=== PATIENT | female | born 1955 | race Caucasian/White ===

== ENCOUNTER 2018-03-04 13:32 | Outpatient (RCR) | payer OTHER, SELFPAY | END 2018-03-05 23:59 | LOC: NS 13:32 | PROVIDERS: Family Provider Family Medicine; PCP Family Medicine; Visit Provider Family Medicine | DX: E66.01 Morbid (severe) obesity due to excess calories (principal); Z68.41 Body mass index [BMI] 40.0-44.9, adult; Z71.3 Dietary counseling and surveillance | CPT/HCPCS: 97802 ==

== ENCOUNTER 2018-03-25 09:32 | Outpatient (RCR) | payer OTHER, SELFPAY | END 2018-04-05 23:59 | LOC: NS 09:32 | PROVIDERS: Family Provider Family Medicine; PCP Family Medicine; Visit Provider Family Medicine | DX: E66.01 Morbid (severe) obesity due to excess calories (principal); Z68.41 Body mass index [BMI] 40.0-44.9, adult; I48.91 Unspecified atrial fibrillation; Z71.3 Dietary counseling and surveillance | CPT/HCPCS: 97803 ==

== ENCOUNTER 2018-04-30 11:30 | Outpatient (RCR) | payer OTHER, SELFPAY | END 2018-05-05 23:59 | LOC: NS 11:30 | PROVIDERS: Family Provider Family Medicine; PCP Family Medicine; Visit Provider Family Medicine | DX: I48.91 Unspecified atrial fibrillation (principal); E66.01 Morbid (severe) obesity due to excess calories; Z68.41 Body mass index [BMI] 40.0-44.9, adult; Z71.3 Dietary counseling and surveillance | CPT/HCPCS: 97803 ==

== ENCOUNTER → 2018-05-25 08:13 | Outpatient (CLI) | payer OTHER, SELFPAY ==
--- NOTE | 2018-05-25 08:59 | BI_ITS ---
MAMMOGRAPHY - BILATERAL SCREENING REASON FOR EXAM: Female, 63 years old. Routine annual screening examination. PERTINENT HISTORY: Aunt with breast cancer. TECHNIQUE: Digital bilateral breast hattie (3D mammographic acquisition) in the CC and MLO projections. 2-D mediolateral oblique (MLO) and craniocaudad (CC) views of both breasts were obtained. CAD: Full Field Digital Mammography with Computer Added Detection was performed. COMPARISON: Comparison is made with prior study dated April 23, 2017 and April 07, 2016. FINDINGS: Breast Composition: The breasts are almost entirely fatty. There are no dominant masses or suspicious calcifications. Stable 6 mm well-defined nodule in the upper midportion of the left breast with calcifications. This most likely represents a fibroadenoma. No other significant abnormalities are identified. There has been no significant change since the prior study. BI/SCREENING MAMM (CAD), BILAT IMPRESSION: Stable bilateral screening mammogram. Yearly follow-up mammogram recommended. (A) ASSESSMENT CATEGORY: BIRADS Category 2: Benign. A letter regarding these results will be sent to the patient by the facility within 30 days. Approximately 10% of breast cancers are not detected by mammography. A normal mammogram should not delay biopsy of a clinically suspicious abnormality. [id number] Electronically Signed: Charles Arce MD at 13:32 EDT Tel [phone], Service support ,
== END ==
PROVIDERS: Family Provider Family Medicine; PCP Family Medicine; Visit Provider Obstetrics & Gynecology
DX: Z12.31 Encounter for screening mammogram for malignant neoplasm of breast (principal)
CPT/HCPCS: 77063; 77067

== ENCOUNTER → 2018-05-28 21:21 | Outpatient (CLI) | payer OTHER, SELFPAY | PROVIDERS: Family Provider Family Medicine; PCP Family Medicine | DX: G47.33 Obstructive sleep apnea (adult) (pediatric) (principal); G47.10 Hypersomnia, unspecified; I48.91 Unspecified atrial fibrillation; I50.9 Heart failure, unspecified | CPT/HCPCS: 95810 ==

== ENCOUNTER 2018-06-03 09:00 | Outpatient (RCR) | payer OTHER, SELFPAY | END 2018-06-05 23:59 | LOC: NS 09:00 | PROVIDERS: Family Provider Family Medicine; PCP Family Medicine; Referring Provider Family Medicine; Visit Provider Family Medicine | DX: I48.91 Unspecified atrial fibrillation (principal); E66.01 Morbid (severe) obesity due to excess calories; Z68.41 Body mass index [BMI] 40.0-44.9, adult; Z71.3 Dietary counseling and surveillance | CPT/HCPCS: 97802; 97803 ==

== ENCOUNTER → 2018-06-20 13:29 | Outpatient (CLI) | payer OTHER, SELFPAY ==
[2018-06-20 13:31] LABS: Bacteria 0 SEEN /hpf (None Seen); Mucous, Urine 0 SEEN /hpf (<or=2+); Squamous Epithelial Cells - UA 0 SEEN /hpf (5-10); White Blood Cells 0 SEEN /hpf (0-5)
[2018-06-20 13:50] LABS: Color, Urine Yellow (Yellow); Glucose, Dipstick Normal (Normal); Ketone-Dipstick Negative (Negative); Leukocyte Esterase-Dipstick Negative /ul (Negative); Nitrite-Dipstick Negative (Negative); Occult Blood-Urine 25 /ul (Negative); Protein-Dipstick Negative (Negative); Specific Gravity, Urine 1.005 (1.002-1.030); Urine Bilirubin Dipstick Negative (Negative); Urine Clarity Clear (Clear); Urine Urobilinogen Normal (Normal)
[2018-06-20 14:24] LABS: Hyaline Cast 0-5 SEEN /lpf (0-5); Red Blood Cells-Urine 0-5 SEEN /hpf (0-5)
[2018-06-24 11:49] LABS: HPV Reflexed? NOT INDICATED
== END ==
PROVIDERS: Visit Provider Obstetrics & Gynecology
DX: Z12.4 Encounter for screening for malignant neoplasm of cervix (principal); N39.0 Urinary tract infection, site not specified
CPT/HCPCS: 81001; 87086; 87088; 87186; 88175; G0145

== ENCOUNTER 2018-07-01 17:00 | Outpatient (RCR) | payer OTHER, SELFPAY | END 2018-07-01 23:59 | LOC: NS 17:00 | PROVIDERS: Family Provider Family Medicine; PCP Family Medicine; Referring Provider Family Medicine; Visit Provider Family Medicine | DX: I48.91 Unspecified atrial fibrillation (principal); E66.01 Morbid (severe) obesity due to excess calories; Z68.37 Body mass index [BMI] 37.0-37.9, adult; Z71.3 Dietary counseling and surveillance | CPT/HCPCS: 97803 ==

== ENCOUNTER → 2019-03-22 10:07 | Outpatient (CLI) | payer OTHER, SELFPAY ==
[2018-08-01 16:34] VITALS: BMI 35.3
[2019-03-22 11:40] LABS: AST(SGOT) 22 U/L (15-37); Alanine Aminotransfer ALT/SGPT 29 U/L (13-56); Albumin, Serum 3.6 g/dL (3.2-5.0); Alkaline Phosphatase 68 U/L (45-117); Anion Gap 5 (5-15); BUN 16 mg/dL (7-18); BUN/Creat Ratio 17.4 RATIO (10-20); Calcium,Total 8.9 mg/dL (8.5-10.1); Chloride 107 mmol/L (98-107); Cholesterol 264 mg/dL (200); Creatinine, Serum 0.92 mg/dL (0.55-1.02); EST Glomerular Filtration Rate 65 mL/min (>60); Est Glom Filt Rate - Afr Amer 79 mL/min (>60); Globulin 3.6 g/dL (2.2-4.2); Glucose 98 mg/dL (74-106); High Density Lipoprotein 65 mg/dL; Potassium 4.2 mmol/L (3.5-5.1); Protein, Total 7.2 g/dL (6.4-8.2); Sodium Level 141 mmol/L (136-145); Triglycerides 102 mg/dL; Very Low Density Lipoprotein 20 mg/dL (5-40)
== END ==
PROVIDERS: Family Provider Family Medicine; PCP Family Medicine; Referring Provider Internal Medicine Endocrinology, Diabetes & Metabolism; Visit Provider Internal Medicine Endocrinology, Diabetes & Metabolism
DX: E89.0 Postprocedural hypothyroidism (principal); E78.00 Pure hypercholesterolemia, unspecified
CPT/HCPCS: 36415; 80053; 80061; 84443

== ENCOUNTER → 2019-06-17 16:56 | Outpatient (CLI) | payer OTHER, SELFPAY ==
[2019-03-24 12:45] VITALS: BMI 35.3
--- NOTE | 2019-06-17 16:57 | BI_ITS ---
MAMMOGRAPHY - BILATERAL SCREENING REASON FOR EXAM: Female, 64 years old. Routine annual screening examination. PERTINENT HISTORY: Aunts with breast cancer. TECHNIQUE: Digital bilateral breast eliza (3D mammographic acquisition) in the CC and MLO projections. 2-D mediolateral oblique (MLO) and craniocaudad (CC) views of both breasts were obtained. CAD: Full Field Digital Mammography with Computer Added Detection was performed. COMPARISON: Comparison is made with prior study dated May 25, 2018 and April 23, 2017. FINDINGS: Breast Composition: The breasts are almost entirely fatty. There are no dominant masses or suspicious calcifications. Stable small benign-appearing bilateral axillary lymph nodes. Stable 6 mm calcification suggestive of a calcified fibroadenoma in the upper slightly lateral portion of the left breast. No other significant abnormalities are identified. There has been no significant change since the prior study. BI/SCREEN MAMM (CAD) W/ELIZA BILAT IMPRESSION: Stable bilateral screening mammogram. Yearly follow-up mammogram recommended. (A) ASSESSMENT CATEGORY: BIRADS Category 2: Benign. A letter regarding these results will be sent to the patient by the facility within 30 days. Approximately 10% of breast cancers are not detected by mammography. A normal mammogram should not delay biopsy of a clinically suspicious abnormality. [id number] Electronically Signed: Charles Arce, at 8:53 EST , Service support ,
== END ==
PROVIDERS: Family Provider Family Medicine; PCP Family Medicine; Referring Provider Obstetrics & Gynecology; Visit Provider Obstetrics & Gynecology
DX: Z12.31 Encounter for screening mammogram for malignant neoplasm of breast (principal)
CPT/HCPCS: 77063; 77067

== ENCOUNTER → 2019-11-07 10:27 | Outpatient (CLI) | payer OTHER, SELFPAY ==
[2019-03-24 12:45] VITALS: BMI 35.3
[2019-11-07 11:42] LABS: ALB/GLOB Ratio 1.1 RATIO (0.9-2.4); AST(SGOT) 27 U/L (15-37); Alanine Aminotransfer ALT/SGPT 31 U/L (13-56); Albumin, Serum 3.7 g/dL (3.2-5.0); Alkaline Phosphatase 70 U/L (45-117); Anion Gap 8 (5-15); BUN 10 mg/dL (7-18); BUN/Creat Ratio 11.8 RATIO (10-20); Calcium,Total 8.5 mg/dL (8.5-10.1); Chloride 103 mmol/L (98-107); Cholesterol 187 mg/dL (200); Creatinine, Serum 0.85 mg/dL (0.55-1.02); EST Glomerular Filtration Rate 71 mL/min (>60); Est Glom Filt Rate - Afr Amer 86 mL/min (>60); Globulin 3.3 g/dL (2.2-4.2); Glucose 87 mg/dL (74-106); High Density Lipoprotein 66 mg/dL; Potassium 3.3 mmol/L (3.5-5.1); Sodium Level 139 mmol/L (136-145); Triglycerides 171 mg/dL; Very Low Density Lipoprotein 34 mg/dL (5-40)
== END ==
PROVIDERS: PCP Family Medicine; Referring Provider Internal Medicine Endocrinology, Diabetes & Metabolism; Visit Provider Internal Medicine Endocrinology, Diabetes & Metabolism
DX: E89.0 Postprocedural hypothyroidism (principal); E78.00 Pure hypercholesterolemia, unspecified
CPT/HCPCS: 36415; 80053; 80061; 84443

== ENCOUNTER → 2019-11-28 15:11 | Outpatient (CLI) | payer OTHER, SELFPAY ==
[2019-03-24 12:45] VITALS: BMI 35.3
[2019-11-28 18:53] LABS: Anion Gap 4 (5-15); BUN 21 mg/dL (7-18); BUN/Creat Ratio 21.7 RATIO (10-20); Calcium,Total 8.8 mg/dL (8.5-10.1); Chloride 103 mmol/L (98-107); Creatinine, Serum 0.97 mg/dL (0.55-1.02); EST Glomerular Filtration Rate 62 mL/min (>60); Est Glom Filt Rate - Afr Amer 74 mL/min (>60); Glucose 94 mg/dL (74-106); Sodium Level 137 mmol/L (136-145)
== END ==
PROVIDERS: PCP Family Medicine; Referring Provider Internal Medicine Endocrinology, Diabetes & Metabolism; Visit Provider Internal Medicine Endocrinology, Diabetes & Metabolism
DX: E89.0 Postprocedural hypothyroidism (principal)
CPT/HCPCS: 36415; 80048

== ENCOUNTER → 2020-01-09 12:55 | Outpatient (CLI) | payer OTHER, SELFPAY ==
[2019-03-24 12:45] VITALS: BMI 35.3
[2020-01-09 14:30] LABS: Anion Gap 5 (5-15); BUN 17 mg/dL (7-18); Calcium,Total 9.3 mg/dL (8.5-10.1); Chloride 105 mmol/L (98-107); Creatinine, Serum 0.94 mg/dL (0.55-1.02); EST Glomerular Filtration Rate 63 mL/min (>60); Est Glom Filt Rate - Afr Amer 76 mL/min (>60); Glucose 98 mg/dL (74-106); Potassium 3.8 mmol/L (3.5-5.1); Sodium Level 139 mmol/L (136-145); Thyroid Stim Hormone (TSH) 4.31 uIU/mL (0.358-3.74)
== END ==
PROVIDERS: PCP Family Medicine; Visit Provider Internal Medicine Endocrinology, Diabetes & Metabolism
DX: E89.0 Postprocedural hypothyroidism (principal)
CPT/HCPCS: 36415; 80048; 84443

== ENCOUNTER 2022-12-08 14:00 | Outpatient (RCR) | payer MEDICARE, BC, SELFPAY ==
--- NOTE | 2022-11-07 17:07 | HP.PTEVAL ---
Patient's Visit Information ARASH PHIPPS is a 67 year old F referred to Physical Therapy by Kelby Lovell PA-C with a diagnosis of L medial epicondaylitis. Date of Evaluation: 11/07/22 Physical Therapist: Eugene Bartlett, PT, ATC - Visit Plan Frequency: 1x/Week Duration: 4-6 Weeks - Subjective Pt reports she has had R lateral elbow pain for the past 2 mos. Pt notes she recently took a steroid for 8 days and the pain is mostly gone. Pt reports she still has some pain on the lateral aspect of her L elbow. Pt reports she has sleep difficulty at this time secondary to L elbow pain. Pt reports she is R hand dominant. Pt reports she tries not to use her L UE very often in order to avoid pain. Pt reports denies tingling or numbness at this time. Pt reports she has had x-rays which revealed no sig findings. Pt reports she is 100% limited from physical activity at this time until she goes through a cardio inversion. Pt reports she hopes to be able to get an US to aid with her pain. 0/10 pain at rest, 9/10 pain at worst - Pain L elbow Pain Intensity (Out of 10): 0 Pain Intensity Range: 9 - Objective Palpation: Pt is sore along the medial aspect of the L epicondyle. Neuro: B UE sensation is WNL to light touch. B bicipital reflex= 2/3. ROM: L elbow ext= 75, flex= 70 degrees; R elbow ext= 80, flex= 70 degrees. MMT: L elbow ext= 25, flex= 19 #F; R elbow ext= 30, flex= 30 #F - Balance/Special Test Scores Quick DASH Score: 18.1800 - Goals Goal 1:: I with HEP Goal Time Frame: 4-6 Weeks - Rehabilitation Potential Physical Therapy Diagnosis: Pt has L elbow pain secondary to L medial epicondylitis Rehabilitation Potential: Good - Anticipated Interventions Patient/Client Instruction: Educate patient on: Condition, Plan of Care For the Purpose of:: To improve self management Therapeutic Exercise to Include: Strength training, Flexibilty training For the Purpose of:: To decrease pain, To increase ROM Thank you for the opportunity to evaluate your patient. For Medicare and Medicare HMO plans, please review the plan of care and approve it. It will need to be FAXED BACK to us at [phone] for Medicare purposes. For Medicare only, by signing this I certify the plan of care. Please let me know if there are questions or concerns regarding this plan of care. Physician Signature: Date:
--- NOTE | 2022-12-08 14:36 | HP.PTREVAL ---
Kelby Lovell PA-C, It has been my pleasure to treat ARASH PHIPPS over the last 6 visits for L medial epicondaylitis. Please see the progress note below for an update on the physical therapy plan of care! Subjective: Pt reports she is getting better Objective/Function: L medial elbow pain ranges from 0-7/10. L wrist ext 70 degrees. Pt is I with HEP Plan Plan: Recheck or discharge in 1 month Balance/Gait/Functional tests - Balance/Special Test Scores Quick DASH Score: 9.0900 Goals Goal 1:: I with HEP Goal Time Frame: 4-6 Weeks Goal Progress: Goal Met Anticipated Interventions Patient/Client Instruction: Educate patient on: Condition, Plan of Care For the Purpose of:: To improve self management Therapeutic Exercise to Include: Strength training, Flexibilty training For the Purpose of:: To decrease pain, To increase ROM Please do not hesitate to contact me at [phone] by phone or if you have questions or concerns regarding this new plan of care! Sincerely, Eugene Bartlett, PT, ATC
--- NOTE | 2023-02-07 09:55 | HP.PT.NRP ---
Patient Information Patient Information: ARASH PHIPPS was seen in my office for initial evaluation on 11/07/22. The following Plan of Care was established for this patient: POC Established Initial Frequency: 1x/Week Initial Duration: 4-6 Weeks Anticipated Interventions Patient/Client Instruction: Educate patient on: Condition and Plan of Care For the Purpose of:: To improve self management Therapeutic Exercise to Include: Strength training and Flexibilty training For the Purpose of:: To decrease pain and To increase ROM Last Seen Last Seen: This patient was last seen in our office . Pertinent comments regarding their Physical therapy will appear below: Pt was treated for 6 PT visits for L elbow pain through the date of 12/21/22. Pt has not returned through todays date and is discontinued at this time. At this point I will be discontinuing this patient from physical therapy. I would be happy to see this patient again in the future if found appropriate by the physician. Thank you! Eugene Bartlett, PT, ATC Balance/Gait/Functional tests Balance/Special Test Scores Quick DASH Score: 9.0900
== END 2022-12-08 19:00 | disposition home or self-care (01) ==
LOC: PT 14:00
PROVIDERS: PCP Family Medicine; Visit Provider Physician Assistant
DX: M77.12 Lateral epicondylitis, left elbow (principal)
CPT/HCPCS: 97035; 97110; 97140; 97161; 97164

== ENCOUNTER 2024-11-27 10:30 | Outpatient (RCR) | payer MEDICARE, BC, SELFPAY ==
--- NOTE | 2024-10-21 09:10 | HP.PTEVAL ---
Patient's Visit Information Visit Information Visit Information: ARASH PHIPPS is a 69 year old F referred to Physical Therapy by LUTHER Olivera with a diagnosis of L Gluteus medius and minimus repair, greater trochanteric bursectomy and IT. Date of Evaluation: 10/15/24 Physical Therapist: Vicente Wren DPT Visit Plan Frequency: 2x /Week Duration: 8 weeks Plan: Manual to L glute, L TFL and iliopsoas. Progress with strengthening and ROM her protocol. Subjective Subjective: Pt. is here today for her initial evaluation with diagnosis of L Gluteus medius and minimus repair, greater trochanteric bursectomy and IT band resection, DOS: 08/25/34. Pt. arrives with quad cane and reports just starting to use it the past few days. Pt. reports doing home health with good tolerance. She reports no N/T in either LE. Pt. report sleeping well without issues. Pt. reports walking around her home without issues. She does have occasional increase in symptoms if I take a bad step. Pt. continues to do her exercises from PT. Pt. is hopeful to reduce symptoms in order to get back to all recreational activities without limitations or increase in L hip pain. Pt. would like to walk without pain and be able to get around her house and go to sporting events with better tolerance. Pain L gluteal region: Pain Intensity (Out of 10): 1 Pain Intensity Range: 0 and 4 Objective Objective: POSTURE: Pt. has slight wt. shift to R side in stance, slight fwrd flexed posture. Pt. is able to improve with VCing. PALPATION: Pt. has tenderness at IT band, throughout. Tenderness throughout gluteal region. NEURO: Normal throughout, normal DTR in BLEs. ROM: L hip: flexion 90deg mild increase NW, ER 30deg, IR not tested, abd 35deg. ext 5deg. MMT: 5/5 knee and ankle musculature bilaterally. 4-/5 throughout L hip musculature. I did not test hip abduction. Balance/Special Test Scores Lower Extremity Functional Score: 40 Goals Goal 1:: LTG: Pt. to be I with HEP. Goal Time Frame: 4-6 Weeks Goal 2:: LTG: Pt. to have full L hip ROM without increase in symptoms. Goal Time Frame: 4-6 Weeks Goal 3:: LTG: pt. to have symmetrical strength between BLEs. Goal Time Frame: 6-8 Weeks Goal 4:: LTG: Pt. to complete 30sec sit to stand rep test with at least 10 reps. Goal Time Frame: 6-8 Weeks Goal 5:: LTG: Pt. to have normal gait pattern without AD without increase in L hip pain. Goal Time Frame: 6-8 Weeks Goal 6:: LTG: Pt. to resume all recreational activities without increase in L gluteal pain. Goal Time Frame: 6-8 Weeks Rehabilitation Potential Physical Therapy Diagnosis: Pt. has signs and symptoms consistent with L Gluteus medius and minimus repair, greater trochanteric bursectomy and IT band resection, DOS: 08/25/34. Pt. has marked hypomobility, weakness, difficulty with walking. Pt. would benefit from PT to address the above limitations progressing back to all recreational activities as previously. Rehabilitation Potential: Excellent Anticipated Interventions Patient/Client Instruction: Educate patient on: Condition, Plan of Care, Risk Factors and Benefits of Fitness Program For the Purpose of:: To improve decision making, To facilitate caregiver knowledge, To improve self management, To prevent re-injury and To improve ability to perform tasks related to life management Therapeutic Exercise to Include: Strength training, Power training, Postural training, Flexibilty training, Gait and locomotor training, Passive ROM, Active ROM and Dynamic Lumbar Stabilization For the Purpose of:: To decrease pain, To decrease swelling/inflammation, To increase ROM, To improve nutrient delivery to tissue, To increase oxygenation perfusion, To improve muscle performance and motor function, To improve ability to perform ADL's, To improve gait and locomotor functions, To improve health of tissue, To decrease soft tissue restriction and To increase flexibility/ROM Manual Therapy Techniques to Include: Soft tissue mobilization For the Purpose of:: To decrease pain, To decrease swelling/inflammation, To increase ROM, To improve nutrient delivery to tissue, To increase oxygenation perfusion and To improve muscle performance and motor function Cryotherapy (ice pack, ice massage): Yes Thermo therapy (hot pack): Yes For the Purpose of:: To decrease pain, To decrease swelling/inflammation, To increase ROM, To improve nutrient delivery to tissue and To increase oxygenation perfusion Text: Thank you for the opportunity to evaluate your patient. For Medicare and Medicare HMO plans, please review the plan of care and approve it. It will need to be FAXED BACK to us at [phone] for Medicare purposes. For Medicare only, by signing this I certify the plan of care. Please let me know if there are questions or concerns regarding this plan of care. Physician Signature: Date:
--- NOTE | 2024-11-27 12:58 | HP.PTREVAL ---
Re-Evaluation Intro: LUTHER Olivera, It has been my pleasure to treat ARASH PHIPPS over the last 12 visits for L Gluteus medius and minimus repair, greater trochanteric bursectomy and IT. Please see the progress note below for an update on the physical therapy plan of care! Subjective Subjective: Pt. reports having increased pain with driving and with stairs. Pt. does not having much issues with driving in town, but more so with longer distances. She still has issues with stair negotiation. Pt. reports having some intermittent issues with her L hip, but her R knee is bothering her more. Pt. is going to follow up with ortho about her R knee. She reports that she has been told it needs to be replaced previously. Objective Objective/Function: ROM: L hip: flexion 120deg NE, abd 45deg NE, ER 75deg NE, ext 10deg NE. Normal HS length noted. MMT: L hip: flexion 4+/5, abd 4+/5, ext 4+/5. ER 4/5, IR 5/5. RLE: hip: 5/5 throughout. GAIT: Pt. ambulates without AD, but does have some increased lateral sway. No true [place] noted. Pt. reports no increase in L hip pain with gait pattern. STAIRS: pt. is able to complete with light HR on 1 side. Reciprocal pattern noted. Plan Plan Plan: Pt. is going to complete her exercises at home and in pool for the next month. She is doing well. She is to come back if not progressing like she would like to. Balance/Gait/Functional tests Balance/Special Test Scores Lower Extremity Functional Score: 65 TUG Test Time Seconds: 9.1 Tug Test: <10 sec.=free mobile 30 Second Chair Rise Test Seconds: 14 Goals Goals Goal 1:: LTG: Pt. to be I with HEP. Goal Time Frame: 4-6 Weeks Goal Progress: Goal Met Goal 2:: LTG: Pt. to have full L hip ROM without increase in symptoms. Goal Time Frame: 4-6 Weeks Goal Progress: Goal Met Goal 3:: LTG: pt. to have symmetrical strength between BLEs. Goal Time Frame: 6-8 Weeks Goal Progress: Progressing Goal 4:: LTG: Pt. to complete 30sec sit to stand rep test with at least 10 reps. Goal Time Frame: 6-8 Weeks Goal Progress: Goal Met Goal 5:: LTG: Pt. to have normal gait pattern without AD without increase in L hip pain. Goal Time Frame: 6-8 Weeks Goal Progress: Progressing Goal 6:: LTG: Pt. to resume all recreational activities without increase in L gluteal pain. Goal Time Frame: 6-8 Weeks Goal Progress: Goal Met Anticipated Interventions Anticipated Interventions Patient/Client Instruction: Educate patient on: Condition, Plan of Care, Risk Factors and Benefits of Fitness Program For the Purpose of:: To improve decision making, To facilitate caregiver knowledge, To improve self management, To prevent re-injury and To improve ability to perform tasks related to life management Therapeutic Exercise to Include: Strength training, Power training, Postural training, Flexibilty training, Gait and locomotor training, Passive ROM, Active ROM and Dynamic Lumbar Stabilization For the Purpose of:: To decrease pain, To decrease swelling/inflammation, To increase ROM, To improve nutrient delivery to tissue, To increase oxygenation perfusion, To improve muscle performance and motor function, To improve ability to perform ADL's, To improve gait and locomotor functions, To improve health of tissue, To decrease soft tissue restriction and To increase flexibility/ROM Manual Therapy Techniques to Include: Soft tissue mobilization For the Purpose of:: To decrease pain, To decrease swelling/inflammation, To increase ROM, To improve nutrient delivery to tissue, To increase oxygenation perfusion and To improve muscle performance and motor function Cryotherapy (ice pack, ice massage): Yes Thermo therapy (hot pack): Yes For the Purpose of:: To decrease pain, To decrease swelling/inflammation, To increase ROM, To improve nutrient delivery to tissue and To increase oxygenation perfusion Re-Evaluation Ending Re-evaluation ending: Please do not hesitate to contact me at [phone] by phone or if you have questions or concerns regarding this new plan of care! Sincerely, Vicente Wren DPT
== END 2024-11-27 19:00 | disposition home or self-care (01) ==
LOC: PT 10:30
PROVIDERS: PCP Family Medicine; Referring Provider Physician Assistant; Visit Provider Physician Assistant
DX: S76.012D Strain of muscle, fascia and tendon of left hip, subsequent encounter (principal); M70.62 Trochanteric bursitis, left hip
CPT/HCPCS: 97110; 97161; 97530

== ENCOUNTER → 2025-06-09 | Outpatient (CLI) | payer MEDICARE, BC, SELFPAY ==
--- NOTE | 2025-06-09 12:59 | CT_ITS ---
PROCEDURE: CT/Extremity Lower without Contra
== END | disposition home or self-care (01) ==
LOC: CT 12:56
PROVIDERS: PCP Family Medicine; Referring Provider Specialist; Visit Provider Specialist
DX: M17.11 Unilateral primary osteoarthritis, right knee (principal)
CPT/HCPCS: 73700

== ENCOUNTER 2025-06-29 07:17 | Observation (INO) | payer MEDICARE, BC, SELFPAY ==
--- NOTE | 2025-06-04 10:26 | EKG12_ITS ---
Test Reason : PREOP Blood Pressure : */* mmHG Vent. Rate : 77 BPM Atrial Rate : 77 BPM P-R Int : 146 ms QRS Dur : 78 ms QT Int : 398 ms P-R-T Axes : 66 24 77 degrees QTcB Int : 450 ms Normal sinus rhythm Nonspecific ST and T wave abnormality Abnormal ECG Confirmed by NILDA FRIAS, CITLALLI ([id number]), index editor KATRINA RUIZ ([id number]) on 06/05/2025 9:58:54 AM Referred By: Herbert Tee Confirmed By: CITLALLI MUNGUIA MD
[2025-06-04 11:33] LABS: Hematocrit 39.6 % (37-47); Hemoglobin 13.7 g/dL (12.0-15.0); Immature Granulocytes Count 0.010 X10^3/uL (0.0-0.0); Mean Corp Hgb Conc 34.6 g/dL (32-36); Mean Corpuscular Volume 92.5 fL (81-99); Mean Platelet Vol. 9.8 fl (6.2-12.0); NRBC Flagged by Analyzer 0 % (0-5); Platelet Count 247 K/mm3 (150-450); RBC Distribution Width CV 12.7 % (11.6-14.6); RBC Distribution Width SD 43.3 fl (35.1-43.9); Red Blood Count 4.28 M/mm3 (4.2-5.4); White Blood Count 6.2 K/mm3 (4.4-11.0)
[2025-06-04 12:35] LABS: Albumin, Serum 4.1 g/dL (3.4-4.8); Anion Gap 10 (5-15); BUN 18 mg/dL (4-19); BUN/Creat Ratio 20.8 RATIO (10-20); Calcium,Total 9.8 mg/dL (7.6-11.0); Carbon Dioxide 24.3 mmol/L (21.0-32.0); Chloride 104 mmol/L (98-108); Glucose 104 mg/dL (70-99); Magnesium 2.2 mg/dL (1.5-2.2); Potassium 4.2 mmol/L (3.3-5.1)
--- NOTE | 2025-06-04 19:11 | PAT.ANESEVAL ---
Pre-Assessment Diagnosis/Proposed Procedure Planned Operative Procedure(s): (R) Total Knee Replacement Robotic Arm Stefano Anesthesia History Anesthesia History - ruffler: Anesthesia History - ruffler Hx Hospitalization No 06/03/25 10:01 Any Problems With Anesthesia No 06/03/25 10:01 Cholinesterase deficiency No 06/03/25 10:01 You/Your Family Experience No 06/03/25 10:01 fever (hyperthermia) with Relationship Recent Exposure to Contagious Disease Does patient have nerve No 06/03/25 10:01 stimulator Patient instructed to have device shut off --Does patient have Pacemaker or ICD? When Was Last Pacemaker Check QUESTION #4 FULL TEXT: You/Your Family Experience fever (hyperthermia) with Anesthesia Last Oral Intake Last Oral intake: Last Oral Intake NPO since Meds taken in AM with sips of water? Meds patient instructed to take am of surgery PONV PONV - ruffler: PONV - ruffler Female Yes 06/03/25 10:01 HX of Motion Sickness Yes 06/03/25 10:01 HX of N/V After Surgery No 06/03/25 10:01 Non-Smoker Yes 06/03/25 10:01 Duration of Surgery greater Yes 06/03/25 10:01 than 60 minutes Number of Risk Factors 4 06/03/25 10:01 PONV Score Severe Risk 06/03/25 10:01 Respiratory Assessment Respiratory Assessment - ruffler: Respiratory Tract Infection Hx - ruffler Hx Respiratory Tract Infection No 06/03/25 10:01 STOP Sleep Apnea STOP Sleep Apnea - ruffler: STOP Sleep Apnea - ruffler Hx Hypertension Yes: CONTROLLED WITH MED 06/03/25 10:01 Hx Sleep Apnea Yes 06/03/25 10:01 CPAP No 06/03/25 10:01 BIPAP No 06/03/25 10:01 Do you snore loudly (louder than talking or can be heard Do you often feel tired/ fatigued/ sleepy during daytime? Has anyone observed you stop breathing during sleep? STOP Results Positive 06/03/25 10:01 QUESTION #5 FULL TEXT : Do you snore loudly (louder than talking or can be heard through closed doors)? 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 Specify any problems Hx of Preganancy in last 3 N/A 06/03/25 10:01 Months Nurse Filling Out Transfusion NBUCHER 06/03/25 10:01 & Questions: Date: 06/03/25 06/03/25 10:01 Time: 10:08 06/03/25 10:01 Patient unable to answer at this time (ie. confused, unrespo /Reproduction History /Reproductive History - ruffler: /Reproductive Hx- ruffler Hx Now No 06/03/25 10:01 Gestational Age (in weeks): EDC: Hx Hx Para Hx Section SAB No 06/03/25 10:01 [facility] Medical History (Updated 06/03/25 @ 10:13 by Bailee Arias) Wears contact lenses Cancer Depression Horners syndrome Graves disease Thyroid disease Arthritis High cholesterol Stroke/cerebrovascular accident Non-smoker CPAP (continuous positive airway pressure) dependence Sleep apnea History of stress test History of echocardiogram Cardiology follow-up encounter History of atrial fibrillation TMJ (sprain of temporomandibular joint) Hypothyroid CAD (coronary artery disease) HTN (hypertension) A-fib Home Medications ?Medication ?Instructions ?Recorded ?Last Taken ?Type losartan 100 mg tablet 100 mg PO DAILY 04/17/16 Unknown History rivaroxaban 20 mg tablet 20 mg PO DAILY 04/17/16 Unknown History atorvastatin 10 mg tablet 20 mg PO QHS 06/24/18 Unknown History cholecalciferol (vitamin D3) 50 2,000 unit PO DAILY 06/24/18 Unknown History mcg (2,000 unit) capsule potassium chloride 20 mEq 20 meq PO DAILY 06/24/18 Unknown History tablet,extended release hydrochlorothiazide 25 mg tablet 25 mg PO DAILY 06/03/25 Unknown History levothyroxine 137 mcg tablet 137 mcg PO DAILY 06/03/25 Unknown History (Synthroid) sertraline 50 mg tablet 50 mg PO DAILY 06/03/25 Unknown History Allergy/AdvReac Type Severity Reaction Status Date / Time Sulfa (Sulfonamide Allergy Itching Verified 06/03/25 09:56 Antibiotics) Family History (Updated 06/24/18 @ 09:13 by Aye Sellers) Mother CVA (cerebral vascular accident) Aunt Breast cancer Surgical History (Updated 06/03/25 @ 10:13 by Bailee Arias) History of cardiac catheterization S/P D&C (status post dilation and curettage) H/O cardiac radiofrequency ablation S/P tubal ligation S/P appendectomy S/P tonsillectomy Social History (Updated 03/24/19 @ 13:55 by Alan SLOAN, PA) Smoking Status: Never smoker alcohol intake: current alcohol intake frequency: a few times a month Audit: Pertinent Findings Pertinent Findings EKG Perinent findings: June 04, 2025. Normal sinus rhythm. Nonspecific ST and T wave abnormalities. Compared to EKG of August 17, 2009 there is no significant change. Echo (EF%) pertinent findings: October 16, 2024. EF of 55%. RVSP is 17 mmHg. No aortic stenosis noted. Heart catheterization pertinent findings: January 09, 2022. Normal coronary angiogram. There is a AV fistula connecting from the SA petty branch of the left circumflex to a venous structure. Continue med therapy. Start diuretic. CT angiogram to delineate anatomy of fistula. Consult pertinent findings: 11/10/2024. Dr. Sykes. 1. Coronary arterial cameral fistula 2. Paroxysmal atrial fibrillation-scheduled for cardioversion next week. Follow-up with electrophysiology for further medication adjustment. Continue Xarelto for stroke risk reduction. 3. Nonrheumatic mitral valve regurgitation?unchanged on most recent echo of October 2024. 4. Hypertension?well-controlled. Continue losartan and hydrochlorothiazide. Recommendation Anesthesia Recommendation Anesthesia recommendation: OPTIMIZED for anesthesia
--- NOTE | 2025-06-28 21:16 | HP.PCM_ITS ---
History and Physical History and Physical Patient Name: Lary Hernández LanceDOB: 1955 From: DATE OF PRE-OPERATIVE EXAM: 06/22/2025 DATE OF SURGERY: 06/29/2025 SCHEDULED PROCEDURE: Robotic assisted right total knee arthroplasty HISTORY OF PRESENT ILLNESS: Patient is a 70-year-old female presenting preoperatively to right total knee arthroplasty. Patient states she has had right knee pain since 2020. Patient states that her pain is sharp. Patient states that doing stairs or sitting for extended periods of time can make her pain worse. Patient states that sitting, resting, elevating the leg helps to alleviate her pain. Patient states that she has tried cortisone injection with no help. Patient states she has tried rest, elevation, oral medications with help. Patient states that she has not tried ice, heat, weight loss, compression, physical therapy, home exercises, chiropractor, gel injections. Patient states for oral medications she has tried Advil. Patient has had 1 cortisone injection. Patient denies any surgeries on the affected joint. REVIEW OF SYSTEMS: Review Of Systems: Constitutional: Denies change in appetite, fever and weight change. Cardiovasular: Reports irregular heartbeat, but denies chest pain and heart murmur. Respiratory: Denies cough, pneumonia, shortness of breath, tuberculosis and wheezing. Gastrointestinal: Denies constipation, diarrhea, heartburn, nausea, rectal itching, bloody stools and vomiting. Genitourinary: . (F Genital Sx) . (Urinary Sx) Musculoskeletal: Reports pain, but denies leg swelling, trouble walking and weakness. Skin: Denies Raynaud's, history of shingles and tattoo. Neurological: Denies ambulatory dysfunction, dizziness, numbness/tingling and tremor. Psychiatric: Denies anxiety, insomnia and stress. Hematologic/Lymphatic: Denies anemia, bleeding/bruising tendency and past transfusion. Reviewed, no changes. PAST MEDICAL HISTORY: Advance Care Plan: No Advance Directives Effective Date: 02/27/2022 Past Medical History: Medical Problems: High Blood Pressure, Hypercholesterolemia History Of Blood Clots/ DVT - (2009) left arm and left fingers - traveled to brain - happened after heart conversion Sleep Apnea - does not use Cpap Stroke, Thyroid Disease Covid- 19 - (07/2021) macular degeneration - BILAT EYES heart ablation - (2022) Afib, Av fistula, atrial flutter Accidents: L4 FX - (2020) Surgical Hx: Appendectomy - (1969) Tonsillectomy - (1960) Tubal Ligation - (1979) Cardiac Ablation Cardioversion - (11/2022) [facility] Electrical Cardioversion - (03/07/2023) [facility] Left Hip reconstruction - 08/2024 Anesthesia Complications: None Assistive Devices: Glasses, Walker Reviewed and updated. SOCIAL HISTORY: Social History: Marital: .Occupation: Retired.Work Status: Retired.Hand Dominance: Right- handed. Personal Habits: Cigarette Use: Never Smoked Cigarettes.Smokeless Tobacco: Never Used Smokeless Tobacco.E-Cigarette Use: Never used.Alcohol: Occasionally.Drug Use: Denies Use.Enjoy Exercising: Exercises 1-3 X/Week. Reviewed, no changes. VITALS: Ht: 71 Wt: 270lb Wt k.472 BMI: 37.7 BP: 128/72 Pulse: 66 Resp: 18 T: 96.9 T: 36.1C Pain Level: 10/10 O2SatR: 98 ALLERGIES: Sulfa MEDICATIONS: Mupirocin 2 % use qtip and apply inside each nostril twice a day until the day of surgery, Levothyroxine Sodium 150 mcg 1 by mouth every day, Xarelto 20 mg 1 by mouth every day, Atorvastatin Calcium 20 mg 1 by mouth every day, Losartan Potassium 50 mg 1 by mouth every day, Zoloft 50 mg 1po qday, Hydrochlorothiazide 12.5 mg 1 by mouth every day, Vitamin D (Cholecalciferol) 50 mcg (1999 Ut) 1 tab, 1x/day, Multi Vitamin take 1 tablet by mouth once daily., Fish Oil 1200 mg 1 by mouth every day, Potassium Chloride ER 10 Meq daily PRE-OP EXAM: General appearance:NORMAL Other: Eyes: Conjunctivae and lids: NORMAL Pupils: ERR Ears, Nose, Mouth, and Throat: NORMAL Other: Inspection of lips, teeth and gums: NORMAL Other: Neck: Examination of neck: no masses noted. Respiratory: Assessment of respiratory effort: NORMAL Other: Auscultation of lungs: clear to auscultation no wheezes, rhonchi or rales. Cardiovascular: Auscultation of heart: regular rate and rhythm, no murmurs, gallops or rubs. Exam of carotid arteries: NORMAL Other: Gastrointestinal: Exam of abdomen: soft, nontender, nondistended bowel sounds present. Lymphatic: Palpation of nodes in neck: NORMAL Other: Palpation of nodes in Axillae: NORMAL Other: Neurological: see below Psychiatric: Orientation to time, place and person: NORMAL Other: Mood and affect: NORMAL Other: PHYSICAL EXAMINATION: - Physical Examination right knee: - Moderate to large effusion - Tenderness over the medial joint line - Large bone spurs palpable IMAGING STUDIES: - X-ray (07/2024): Shows [id number] arthritis in the right knee. There is associated subchondral sclerosis marginal osteophyte formation and varus alignment. IMPRESSION: Hypertension Hypercholesterolemia History of blood clots Sleep apnea History of stroke Thyroid disease Macular degeneration History of heart ablation Atrial fibrillation Anxiety AV fistula Depression Atrial flutter Primary osteoarthritis right knee Varus deformity right knee Obesity PLAN: The surgeon did discuss and review all treatment options with the patient including surgical versus nonsurgical. At this time the patient does wish to proceed with the above-stated procedure. Potential risks benefits and complications of the procedure were discussed and reviewed with the patient including but not limited to , infection, nerve and blood vessel damage, persistent pain, numbness, tingling, paresthesias, blood clot, pulmonary embolism, in the requirement for possible further surgery. Patient expressed full understanding. Has no further questions for the doctor. Does agree to proceed with the above-stated procedure, and has signed the appropriate surgery consent form. DVT prophylaxis: Patient will resume regular dose of Xarelto postoperatively. Patient will be wearing MORENO hose for 2 weeks postoperatively. Pain medications: Patient will be taking Tylenol 1000 mg every 8 hours, oxycodone as needed for postoperative pain control. Patient was educated in the use of Zofran for nausea and vomiting. Patient was educated in the use of famotidine postoperatively. Patient was educated in the use of postoperative senna to avoid constipation. ___ I have re-examined the patient. There are no clinical changes since date of exam. ___ See progress notes for changes. ___ Dictated on admission Date: Time: Signature:
[2025-06-29] VITALS (13 sets, daily range): BP systolic 107–150; BP diastolic 45–89; PULSE 53–71; RESP 12–20; TEMP 36.4–37.1; O2SAT 96–100; BMI 37.7
[2025-06-29] MEDS: Magnesium 1 GM over 15 mins IV (11:17)
[2025-06-29] MEDS: LR 1,000 ML - BOLUS PREOP 999 ML IV (11:18)
--- NOTE | 2025-06-29 12:24 | PCM.PRE.AN2 ---
ASA Classification* ASA Classification ASA Classification: 3 (Afib, HTN, ERUM, hx CVA) Assessment & Plan Anesthesia* Anesthesia Assessment Anesthesia Assessment: Discussed sedation and/or anesthesia options, risks, benefits, and alternatives with patient/parents/legal guardian/POA. Questions invited. The patient/parents/legal guardian/POA seems to understand and agrees to proceed with anesthesia plan. Reviewed the physical assessment, medical history, allergy history and patient home medications list prior to surgery/procedure/anesthetic and documented any changes. Performed airway and anesthesia risk assessments. Anesthesia Type Anesthesia Type: Spinal (Patient last took xarelto on 06/26/2025, and has been off xarelto for >48 hours, with CrCl > 50. ) and Block ((R) ACB. Benefits/risks/alternatives explained. Opportunity for questions elicited. ) History Source History Obtained from:: Patient and Chart Anesthesia Focused Assessment* Temperature: 98.7 F Pulse Rate: 53 Blood Pressure: 122/61 Respiratory Rate: 16 Pulse Ox: 100 Oxygen Delivery Method: Room Air Airway Assessment Mouth opens: >3 cm Mallampati Score: III Neck Range of motion (ROM): Full ROM Labs Anesthesia Preop lab: CBC WBC, (4.4-11.0) 6.2 K/mm3 06/04/25, 10:36 RBC, (4.2-5.4) 4.28 M/mm3 06/04/25, 10:36 Hgb, (12.0-15.0) 13.7 g/dL 06/04/25, 10:36 Hct, (37-47) 39.6 % 06/04/25, 10:36 Plt Count, (150-450) 247 K/mm3 06/04/25, 10:36 CHEMISTRY Potassium, (3.3-5.1) 4.2 mmol/L 06/04/25, 10:36 Sodium, (133-145) 139 mmol/L 06/04/25, 10:36 Magnesium, (1.5-2.2) 2.2 mg/dL 06/04/25, 10:36 BUN, (4-19) 18 mg/dL 06/04/25, 10:36 Creatinine, (0.70-1.20) 0.86 mg/dL 06/04/25, 10:36 Glucose, (70-99) 104 mg/dL H 06/04/25, 10:36 TSH, (0.300-4.200) 0.299 uIU/mL L 06/04/25, 10:36 COAG Pre-Assessment Diagnosis/Proposed Procedure Planned Operative Procedure(s): (R) Total Knee Replacement Robotic Arm Stefano Anesthesia History Anesthesia History - housing assistant: Anesthesia History - housing assistant Hx Hospitalization No 06/03/25 10:01 Any Problems With Anesthesia No 06/03/25 10:01 Cholinesterase deficiency No 06/03/25 10:01 You/Your Family Experience No 06/03/25 10:01 fever (hyperthermia) with Relationship Recent Exposure to Contagious No 06/29/25 11:05 Disease Does patient have nerve No 06/03/25 10:01 stimulator Patient instructed to have device shut off --Does patient have Pacemaker No 06/29/25 11:05 or ICD? When Was Last Pacemaker Check QUESTION #4 FULL TEXT: You/Your Family Experience fever (hyperthermia) with Anesthesia Last Oral Intake Last Oral intake: Last Oral Intake NPO since 20:30 06/29/25 11:05 Meds taken in AM with sips of Yes 06/29/25 11:05 water? Meds patient instructed to 0730 06/29/25 11:05 take am of surgery PONV PONV - housing assistant: PONV - housing assistant Female Yes 06/03/25 10:01 HX of Motion Sickness Yes 06/03/25 10:01 HX of N/V After Surgery No 06/03/25 10:01 Non-Smoker Yes 06/03/25 10:01 Duration of Surgery greater Yes 06/03/25 10:01 than 60 minutes Number of Risk Factors 4 06/03/25 10:01 PONV Score Severe Risk 06/03/25 10:01 Height & Weight Height & Weight: Anesthesia: Height & Weight Height 5 ft 11 in 06/29/25 11:05 Weight: 122.7 kg 06/29/25 11:05 Body Mass Index (BMI) 37.7 06/29/25 11:05 Respiratory Assessment Respiratory Assessment - housing assistant: Respiratory Tract Infection Hx - housing assistant Hx Respiratory Tract Infection No 06/03/25 10:01 STOP Sleep Apnea STOP Sleep Apnea - housing assistant: STOP Sleep Apnea - housing assistant Hx Hypertension Yes: CONTROLLED WITH MED 06/03/25 10:01 Hx Sleep Apnea Yes 06/03/25 10:01 CPAP No 06/03/25 10:01 BIPAP No 06/03/25 10:01 Do you snore loudly (louder than talking or can be heard Do you often feel tired/ fatigued/ sleepy during daytime? Has anyone observed you stop breathing during sleep? STOP Results Positive 06/03/25 10:01 QUESTION #5 FULL TEXT : Do you snore loudly (louder than talking or can be heard through closed doors)? Tobacco Use History Tobacco Use History - housing assistant: Tobacco Use History - housing assistant Tobacco Use Smoking Status Never smoker 06/03/25 10:01 Hx Tobacco Use No 06/03/25 10:01 Years Smoking Packs Smoked per Day Smoking Cessation Date was within the last 15 years Hx Smoking Cessation Date Hx Smoking Cessation Counseling Hematologic Medial History Hematologic Hx - housing assistant: Hematologic Medical Hx - nuclear medicine chief technologist Hx of Blood Transfusion No 06/03/25 10:01 Hx of Transfusion in last 3 No 06/03/25 10:01 Months Date of Last Transfusion (if within last 3 months) Ever experience any problems No 06/03/25 10:01 with transfusion(s)? Specify any problems Hx of Preganancy in last 3 N/A 06/03/25 10:01 Months Nurse Filling Out Transfusion NBUCHER 06/03/25 10:01 & Questions: Date: 06/03/25 06/03/25 10:01 Time: 10:08 06/03/25 10:01 Patient unable to answer at this time (ie. confused, unrespo /Reproduction History /Reproductive History - housing assistant: /Reproductive Hx- housing assistant Hx Now No 06/03/25 10:01 Gestational Age (in weeks): EDC: Hx Hx Para Hx Section SAB No 06/03/25 10:01 Does the father of the baby or his family experience fever w Father of the baby Malignant Hypertension history comment Active Medications Active Medications: Current Medications Generic Name Dose Route Start Last Admin Trade Name Freq PRN Reason Stop Dose Admin Acetaminophen 1,000 mg 06/29/25 12:30 06/29/25 11:17 Acetaminophen 500 Mg Tablet PO 06/29/25 12:31 1,000 mg PREOP ONE Administration Acetaminophen 1,000 mg 06/29/25 07:30 Acetaminophen 500 Mg Tablet PO Q8H ESEQUIEL Tranexamic Acid 2,000 mg/ 0 mg 06/29/25 12:30 Sodium Chloride 100 ml OPERA.SITE 06/29/25 12:31 X1 ONE Sodium Chloride 77.9 ml/ 0 ml 06/29/25 12:30 Ropivacaine 200 mg/ OPERA.SITE 06/29/25 12:31 Epinephrine HCl 0.6 mg/ INTRAOP ONE Ketorolac Tromethamine 30 mg/ Morphine Sulfate 5 mg Dexamethasone Sodium Phosphate 10 mg 06/29/25 12:30 Dexamethasone 10 Mg/Ml Vial IV 06/29/25 12:31 INTRAOP ONE Doxycycline Monohydrate 100 mg 06/29/25 10:00 Doxycycline 100 Mg Capsule PO BID [facility] Enteral Nutritional Formula 237 ml 06/29/25 08:00 Ensure Surgery 237 Ml Liquid PO TIDCM [facility] Famotidine 20 mg 06/29/25 10:00 Famotidine 20 Mg Tablet PO DAILY [facility] Gabapentin 600 mg 06/29/25 12:30 06/29/25 11:17 Gabapentin 600 Mg Tablet PO 06/29/25 12:31 600 mg PREOP ONE Administration Lactated Ringer's 1,000 mls @ 999 mls/hr 06/29/25 12:30 06/29/25 11:18 IV 06/29/25 13:30 999 mls/hr .Q1H1M ESEQUIEL Administration Cefazolin Sodium 2 gm/ Sodium 110 mls @ 150 mls/hr 06/29/25 12:30 Chloride IV 06/29/25 13:13 INTRAOP ONE Lactated Ringer's 1,000 mls @ 999 mls/hr 06/29/25 13:30 IV 06/29/25 14:30 .Q1H1M ESEQUIEL Lactated Ringer's 1,000 mls @ 125 mls/hr 06/29/25 14:30 IV 06/29/25 22:29 .Q8H ESEQUIEL Magnesium Sulfate 1 gm/ 102 mls @ 408 mls/hr 06/29/25 12:30 06/29/25 11:17 Dextrose IV 06/29/25 12:44 408 mls/hr PREOP ONE Administration Cefazolin Sodium 1 gm in 50 mls @ 100 mls/hr 06/29/25 07:20 IV 06/29/25 15:49 Q8H [facility] Insulin Human Lispro 1 - 6 unit 06/29/25 12:30 Insulin Lispro 100 Unit/Ml Insuln.Pen SC 06/29/25 18:30 Q4H PRN PRN BG>/= 180, SEE PROTOCOL Protocol Meloxicam 15 mg 06/29/25 12:30 06/29/25 11:17 Meloxicam 15 Mg Tablet PO 06/29/25 12:31 15 mg PREOP ONE Administration Morphine Sulfate 2 - 4 mg 06/29/25 07:16 Morphine 2 Mg/Ml Syringe IV Q2H PRN PRN Pain Score 4-10 Ondansetron HCl 4 mg 06/29/25 07:16 Ondansetron 4 Mg/2 Ml Vial IV Q6H PRN PRN NAUSEA/VOMITING Oxycodone HCl 5 - 10 mg 06/29/25 07:16 Oxycodone 5 Mg Tablet PO Q4H PRN PRN Pain Score 4-10 Promethazine HCl 12.5 mg 06/29/25 07:16 Promethazine 25 Mg Tablet PO Q6H PRN PRN NAUSEA/VOMITING Promethazine HCl 12.5 mg 06/29/25 07:16 Promethazine 25 Mg/Ml Syringe IM Q6H PRN PRN NAUSEA/VOMITING Rivaroxaban 20 mg 06/30/25 06:00 Rivaroxaban 20 Mg Tablet PO DAILY [facility] Senna/Docusate Sodium 2 tablet 06/29/25 10:00 Senna/Docusate Sodium 1 Tablet PO BID [facility] PFS Medical History (Updated 06/03/25 @ 10:13 by Bailee Arias) Wears contact lenses Cancer Depression Horners syndrome Graves disease Thyroid disease Arthritis High cholesterol Stroke/cerebrovascular accident Non-smoker CPAP (continuous positive airway pressure) dependence Sleep apnea History of stress test History of echocardiogram Cardiology follow-up encounter History of atrial fibrillation TMJ (sprain of temporomandibular joint) Hypothyroid CAD (coronary artery disease) HTN (hypertension) A-fib Home Medications ?Medication ?Instructions ?Recorded ?Last Taken ?Type losartan 100 mg tablet 100 mg PO DAILY 04/17/16 06/29/25 07:30 History rivaroxaban 20 mg tablet 20 mg PO DAILY 04/17/16 06/28/25 History atorvastatin 10 mg tablet 20 mg PO QHS 06/24/18 06/28/25 History cholecalciferol (vitamin D3) 50 2,000 unit PO DAILY 06/24/18 06/28/25 History mcg (2,000 unit) capsule potassium chloride 20 mEq 20 meq PO DAILY 06/24/18 06/28/25 History tablet,extended release hydrochlorothiazide 25 mg tablet 25 mg PO DAILY 06/03/25 06/28/25 History levothyroxine 137 mcg tablet 137 mcg PO DAILY 06/03/25 06/29/25 07:30 History (Synthroid) sertraline 50 mg tablet 50 mg PO DAILY 06/03/25 06/29/25 07:30 History Allergy/AdvReac Type Severity Reaction Status Date / Time ampicillin Allergy Mild Itching Verified 06/29/25 11:01 Sulfa (Sulfonamide Allergy Itching Verified 06/03/25 09:56 Antibiotics) Family History (Updated 06/24/18 @ 09:13 by Aye Sellers) Mother CVA (cerebral vascular accident) Aunt Breast cancer Surgical History (Updated 06/03/25 @ 10:13 by Bailee Arias) History of cardiac catheterization S/P D&C (status post dilation and curettage) H/O cardiac radiofrequency ablation S/P tubal ligation S/P appendectomy S/P tonsillectomy Social History (Updated 03/24/19 @ 13:55 by Alan SLOAN, PA) Smoking Status: Never smoker alcohol intake: current alcohol intake frequency: a few times a month Review of Systems (Anesthesia) ROS Narrative System reviewed and no additional complaints, except as documented. Physical Exam Const alert, oriented x3 and average body habitus Resp normal respiratory effort, normal air movement and clear to auscultation bilaterally Cardio regular rate, regular rhythm and no murmurs; Negative for diaphoretic
[2025-06-29] MEDS: Midazolam 2 MG/2 ML Syringe IV (12:40)
[2025-06-29] MEDS: Cefazolin 1 GM/5 ML Vial 2 GM IV (12:47)
[2025-06-29] MEDS: Lidocaine 1% (5 ml sdv) 5 ML Vial IV (12:50)
[2025-06-29] MEDS: TRANEXAMIC ACID 1,000 MG/10 ML ML 2000 MG IV (12:50)
[2025-06-29] MEDS: JPS (Morphine 10mg/ml) OPERA.SITE (14:02)
--- NOTE | 2025-06-29 14:10 | PCM.OPRPT ---
Operative Report (Standard) Operative Information Date of Procedure: 06/29/25 Pre-Operative Diagnosis: Right knee primary osteoarthritis Post-Operative Diagnosis: Right knee primary osteoarthritis Surgery/Procedure Performed: Right knee minimally invasive robotic assisted total arthroplasty pipe tester: Yes Bath Design Sales Consultant: Madyson Mcfarlane Tasks completed by equal opportunity assistant: Other (See body of operative report) Additional hardware sales assistant?: Yes Additional Airbrush Artist #2: Kiara Reddy Tasks completed by hardware sales assistant #2: Opening, Closing and Retracting Additional hardware sales assistant?: No Type of Anesthesia: Spinal RN Documented Start/Stop Times: Operation Date: 06/29/25 12:30 Case Time Into Pre-Op 06/29/25 10:40 Anesthesia Start 06/29/25 12:39 Into Room 06/29/25 12:39 Procedure Start 06/29/25 13:13 Procedure End 06/29/25 14:51 Anesthesia End 06/29/25 14:54 Out of Room 06/29/25 14:54 Into Recovery 06/29/25 14:57 Procedure Start Time: 13:13 Procedure Stop Time: 14:51 Select all DRAINS/GRAFTS/IMPLANTS that apply: Prosthetic device Prosthetic device details: See body of operative report Special Medications: 2 g Ancef, 1 g TXA at incision, 1 g TXA closure, 10 mg Decadron, joint cocktail (5 mg Duramorph, 30 mL of 0.5% Ropivicaine, 1000 units of epinephrine, 30 mg of Toradol) Estimated Blood Loss: 150 mL Fluids Replaced: 1400 mL crystalloid Specimen collected: Yes Description of specimen(s) removed: Bony cuts Description of surgery: Implants used: 1. Pankaj size 6 triathlon cruciate retaining distal femoral press-fit component 2. Mumford size 5 press-fit tritanium tibial baseplate 3. Pankaj X3 10 mm CS polyethylene Brief history operative indications: 70-year-old F with history of right knee osteoarthritis with radiographic findings with loss of joint space, osteophyte formation and subchondral sclerosis. Failed conservative measures as mentioned in the H&P. Discussion of total knee arthroplasty as well as risk and benefits were discussed the patient including but not limited to blood loss, DVTs, PEs, neurovascular damage, general risk of anesthesia including loss of life, and stiffness or instability were discussed with patient. Patient demonstrated understanding and was able to sign informed consent. Procedure: On the date of procedure patient's right lower extremity was marked in the preoperative area. The patient was then taken back to the operating room where the patient was placed on the table in the supine position. All bony prominences were identified a well-padded. Anesthesia assumed control of the C-spine and airway and remained controlled throughout the remainder of the procedure. A tourniquet was placed on the right upper thigh and the leg was prepped in a sterile fashion. The surgeon then scrubbed at this time .Upon reentering the room right lower extremity was draped in a standard orthopedic fashion. A timeout was then called and everyone agreed upon the side, the site, the procedure to be performed, patient's identity and antibiotics given. Esmarch bandage was used to exsanguinate the extremity and the tourniquet was placed up to 250 mmHg with the knee in flexion. A midline skin incision was made and sharp dissection was taken down through skin subcutaneous tissue and fat. The standard medial parapatellar incision was made and the patella was subluxed laterally. An Appropriate deep MCL release was done and the fat pad was resected. Our attention was then directed to the patella. The patella was everted and and found to have appropriate cartilage for retention The knee was then flexed up in 2 femoral pins were placed inside the incision and 2 tibial pins were placed outside the incision in the medial tibia bicortically. Once this was completed the 2 checkpoints in the femur and tibia were placed. Knee was then flexed up and the bony landmarks were registered. Once this was completed knee was taken through range of motion and manually stressed allowing us to a plan for an appropriate tibial cut. The robotic arm was brought into the field sterilely and checkpoint and saw were registered. Based on the patient's deformity the tibial cut was made neutral to the tibial axis. At this time the tensioner was then placed in the joint and ligament tension was checked at 90 degrees and full extension. Based on the patient's ligamentous tension appropriate adjustments were made to the operative plan and ligament releases were done. Once we were happy with our operative plan with balanced flexion and extension gaps our attention was directed to the femur. The robot was brought into the field sterilely and registered. Posterior condylar cuts, anterior chamfer cuts and anterior cuts were appropriately made for a size 6 femur. When these were completed the saws were switched out in the distal femoral and posterior chamfer cuts were made. Protecting the soft tissue throughout this time. A size 5 tibial base plate was selected. the knee was flexed to 90 degrees and the soft tissues and posterior osteophytes were removed from the joint. 40 cc of the periarticular injection was injected into the posterior medial corner of the joint. The appropriate trials were then placed on the femur and tibia. A trial polyethylene was trialed to ensure proper balancing and stability of the knee. The appropriate tibial internal rotation was then marked with a bovie. Our attention was then directed to the patella. Patellar tracking was checked and deemed appropriate. Once we were happy lug holes were drilled for the femur and trial components were removed. The tibia was subluxed and pinned into place and the keel was punched and drilled appropriately. Final components were verified and opened. The wound was copiously irrigated with normal saline. When the cement was ready the components were impacted into place starting with the tibia then the femur. The trial poly component was placed and the knee was placed in full extension. Once the the implants were secured, the tracking, alignment and balance were verified and a size [] polyethylene component was placed. Once the final components were placed a 3-minute dilute Betadine lavage was performed followed by an Irrisept lavage was performed and the wound was copiously irrigated with normal saline solution and the periarticular injection was given. The wound was closed in a layer lowry fashion using #1 vicryl interrupted sutures for the arthrotomy, 2-0 interrupted Vicryl suture for the subcuticular layer and chelsy for final skin closure. A sterile compressive dressing was then placed. The patient was then awakened from anesthesia, transferred to the [facility] and transferred to the PACU for recovery. Post op plan DVT ppx: Resume Xarelto, thigh high compression stockings Follow up: in office in 2 weeks for wound check PT: to start POD #0 at hospital, outpatient PT should be arranged. My physician hardware sales assistant was a vital part of this case, they was important because there was not another skilled set of hands available to their training and aptitude needed for safe and appropriate completion of this case. They were important in appropriate retraction during the case, and protection of soft tissues during bony cuts. In particular the experience and skill of this hardware sales assistant made for safe retraction and exposure during implantation of medical implants without damage to vital soft tissues or structures. His intimate knowledge of the case and my steps aided in safe and expedient completion of the procedure as well as appropriate position of the leg during the case. He was also vital in assisting with closure under my direct supervision. Due to the complexity of this case robotic arm was used to assist in the surgery to improve accuracy and clinical outcomes. Surgical Findings: Stage IV osteoarthritis. Stable knee with good patella tracking Complications Complications: No Admit VTE Documentation VTE Present on Admission: No VTE Mechan Device Prophylaxis: SCD's and Thigh High MORENO Hose VTE Pharm Prophylaxis ordered?: Yes
[2025-06-29] MEDS: LR 1,000 ML - BOLUS POSTOP 999 ML IV (15:05)
--- NOTE | 2025-06-29 15:16 | RAD_ITS ---
PROCEDURE: KNEE 1 OR 2 VIEWS 06/29/2025 REASON FOR EXAM: TKA TECHNIQUE: Procedure Code: RADK Modality: DX Procedure: KNEE 2 VIEWS Laterality: Right COMPARISON: Preoperative CT of 06/09/2025. RAD/Knee 1 or 2 Views IMPRESSION: The patient's postoperative right total knee arthroplasty, with overlying skin staple seen. Satisfactory alignment is noted. No complication is seen. No fracture site is evident. Reading Location: [id number]
--- NOTE | 2025-06-29 15:17 | PCM.POST.ANE ---
Anesthesia: Postop Eval I Current Vital Signs Temperature: 98 F Pulse Rate: 65 Blood Pressure: 126/60 Respiratory Rate: 12 Pulse Ox: 100 Oxygen Delivery Method: Room Air Assessment Airway patent: Yes Spontaneous unlabored respirations: Yes Mental status: Awake and Calm nausea: Yes Vomiting: Yes Anesthesia Complication: No Fluid Hydration Crystalloid volume administer (ml): 1,400 Total IV fluid infused: 1,400 Progress Note Anesthesia document: Postop Eval 1 completed: Yes
--- NOTE | 2025-06-29 15:34 | SUR.PHASEI ---
home polar care applied
--- NOTE | 2025-06-29 16:19 | PCM.PN.HOSP ---
Subjective Subjective Patient's postoperatively with no acute complaints or events reporting that currently pain is completely controlled. Discussed with surgical staff and she did have a spinal and potentially block but clarifying. Patient denies any complaints at this time and tolerated some oral intake previous to floor transition. Patient denies fevers, chills, nausea, emesis, abdominal pain, chest pain or dyspnea. Objective Data Objective Data Vital Signs: Vital Signs Temp Pulse Resp BP Pulse Ox O2 Del Method O2 Flow Rate 97.9 F 62 18 137/62 H 97 Nasal Cannula 4 06/29/25 16:09 06/29/25 16:09 06/29/25 16:09 06/29/25 16:09 06/29/25 16:09 06/29/25 16:09 06/29/25 16:09 Oxygen Flow Rate (L/min) 4 Oxygen Delivery Method Nasal Cannula Weight: 270 lb 8.115 oz Body Mass Index (BMI) 37.7 Intake & Output: Intake and Output for Last 24 Hours 06/27/25 06/28/25 06/29/25 23:59 23:59 23:59 Intake Total 1102 / 1102 Output Total 300 / 300 Balance 802 / 802 Lab / Micro Data 06/04/25 10:36 06/04/25 10:36 Labs: Laboratory Results - last 24 hr 06/29/25 11:23: POC Glucose 85 Micro: Microbiology 06/04/25 10:36 Swab (Method) Nasal Screen MRSA/MSSA - Final Radiography Diagnostic Testing: Radiology Impression Knee X-Ray 06/29/25 15:16 IMPRESSION: The patient's postoperative right total knee arthroplasty, with overlying skin staple seen. Satisfactory alignment is noted. No complication is seen. No fracture site is evident. Reading Location: [address] Physical Exam Narrative Physical Examination: General: Awake, alert, oriented x 3 and cooperative, seated upright in the medical surgical bed, denies any current pain, surgical staff noting recent block. Skin: Normal color, normal turgor, no icterus, no cyanosis except occasional stage ecchymoses, status post right total knee replacement with dressing placement and drainage. HEENT: AT/NC, EOMI, PERRLA, mildly dry MM, no carotid bruits or JVD noted. Lungs: CTA bilaterally, moderate effort, mild decrease BL bases, no rales, ronchi or wheezing. Heart: Regular rate and rhythm; no gallop, rub audible. Abdomen: Soft, obese, NTTP, ND, mildly hyperactiveBS, no appreciated HSM. Extremities: No cyanosis, no clubbing, mild bilateral ankle edema not marked, status post right total knee replacements with dressing in place with no drainage. Neurological: Patient awake, alert, oriented as noted, cognitive function intact; pupils equally reactive to light and accommodation, cranial nerves grossly normal, moving all 4 extremities although still notably weak given recent block and surgical intervention, no focal deficits, strength moderately to severely globally decreased. Psychiatric: Affect appears fatigued otherwise normal, no acute evidence of depressive or anxiety feelings but does have underlying history. Assessment & Plan Assessment/Plan (1) Osteoarthritis of right knee: PLAN: Plan The patient is a 70 y/o F w/ PMHx: Obesity, ERUM on CPAP, CAD, Anxiety and Depression, Hx Graves disease with hypothyroidism, Hx CVA, HTN, HLD, PAF s/p RFA, Osteoarthritis who presents to the [facility] on 06/29/25 secondary to ongoing persistent right knee pain with right knee primary osteoarthritis failed outpatient conservative interventions and therapies for planned right knee minimally invasive robotic assisted total arthroplasty per Dr. Tee. #1. Severe Osteoarthritis, right knee: Failed conservative therapies and treatments, admitted per Dr. Tee, status post right knee minimally invasive robotic assisted total arthroplasty, post-operative pain management, bowel regimen, DVT Prophylaxis, PT/OT/CM per Orthopedic surgery discretion. #2. Hypertension: Continue home regimen including hydrochlorothiazide, losartan with hold parameters, PRN hydralazine. #3. Hyperlipidemia: Will continue patient home statin therapy. #4. PAF: Status post previous RFA, patient is per current list is not on any rate or rhythm agent, encouraged continuation of patient Xarelto regimen once cleared by orthopedic surgery. #5. CAD: Encourage continuation of Xarelto once cleared by orthopedic surgery, continue statin therapy, losartan, not on beta-azar therapy of note. #6. History of CVA: Encourage continuation of Xarelto once cleared by orthopedic surgery, continue statin therapy, hypertensive regimen, no diabetic history per report. #7. Graves' disease with hyperthyroidism: Patient with history of Graves' disease, on supplemental Synthroid regimen, will continue. #8. Anxiety and depression: Will continue patient home sertraline regimen. #9. Obesity: Weight loss and lifestyle changes encouraged. #10. ERUM: Encourage CPAP nightly. #11. DVT prophylaxis: SCDs, chemoprophylaxis per surgery discretion given recent OR. Charges/Coding Visit Charges Inpatient E&M: 24963 Subs Hosp L3
[2025-06-29] MEDS: TXA 2000mg in NS 100ml (Placed in Wound) OPERA.SITE (16:37)
--- NOTE | 2025-06-29 16:45 | POSTOPAN2_ITS ---
Anesthesia Postop Eval I Sum Postop Eval Completion status Anesthesia document: Postop Eval 1 completed: Yes Anesthesia Postop Eval I Summary Anesthesia Postop Eval I Summary: Anesthesia Postop Eval I: Assessment Summary Airway patent Yes 06/29/25 15:18 [email or web address] Spontaneous unlabored Yes 06/29/25 15:18 [email or web address] [email or web address] respirations Mental status Awake,Calm 06/29/25 15:18 [email or web address] [email or web address] nausea Yes 06/29/25 15:18 PHOTOSTAT [email or web address] Vomiting Yes 06/29/25 15:18 [email or web address].SHOF Anesthesia Postop Eval I: Fluid Summary Crystalloid volume administer 1,400 06/29/25 15:18 [email or web address].SHOF (ml) Colloids volume administered ( ml) Blood Product volume administered (ml) Total IV fluid infused 1,400 06/29/25 15:18 [email or web address] Anesthesia Postop Eval I: Summary Notes Anesthesia Complication No 06/29/25 15:18 [email or web address].SHOF Anesthesia Complication Comment: Post-operative progress note Anesthesia: Postop Eval II Evaluation Mental status: Awake Pain Level: 0 nausea: No Vomiting: No Complications Anesthesia Complication: No
--- NOTE | 2025-06-29 16:45 | PCM.POSTANE2 ---
Anesthesia Postop Eval I Sum Postop Eval Completion status Anesthesia document: Postop Eval 1 completed: Yes Anesthesia Postop Eval I Summary Anesthesia Postop Eval I Summary: Anesthesia Postop Eval I: Assessment Summary Airway patent Yes 06/29/25 15:18 CP BLEACHER [email or web address] Spontaneous unlabored Yes 06/29/25 15:18 CP BLEACHER OPERATOR.SHOF respirations Mental status Awake,Calm 06/29/25 15:18 CP BLEACHER [email or web address] nausea Yes 06/29/25 15:18 CP BLEACHER OPERATOR.SHOF Vomiting Yes 06/29/25 15:18 CP BLEACHER OPERATOR.SHOF Anesthesia Postop Eval I: Fluid Summary Crystalloid volume administer 1,400 06/29/25 15:18 CP BLEACHER OPERATOR.SHOF (ml) Colloids volume administered ( ml) Blood Product volume administered (ml) Total IV fluid infused 1,400 06/29/25 15:18 CP BLEACHER OPERATOR.SHOF Anesthesia Postop Eval I: Summary Notes Anesthesia Complication No 06/29/25 15:18 CP BLEACHER OPERATOR.SHOF Anesthesia Complication Comment: Post-operative progress note Anesthesia: Postop Eval II Evaluation Mental status: Awake Pain Level: 0 nausea: No Vomiting: No Complications Anesthesia Complication: No
[2025-06-29] MEDS: Ensure Surgery 237 ML LIQUID PO (16:54)
[2025-06-29] MEDS: LR 1,000 ML - 125 ML/HR (POST BOLUS) POST OP IV (16:55)
[2025-06-29] MEDS: Cefazolin 1 GM/50 ML BAG IV (20:43)
[2025-06-29] MEDS: Senna/Docusate Sodium 1 Tablet 2 TABLET PO (22:10)
[2025-06-30 00:15] VITALS: O2SAT 88
[2025-06-30 00:22] VITALS: BP 120/48; PULSE 70; RESP 18; TEMP 36.6; O2SAT 94
[2025-06-30 05:03] VITALS: BP 133/59; PULSE 65; RESP 16; TEMP 36.4; O2SAT 98
[2025-06-30] MEDS: Cefazolin 1 GM/50 ML BAG IV (05:07)
[2025-06-30 06:55] LABS: Hematocrit 32.5 % (37-47); Hemoglobin 11.0 g/dL (12.0-15.0); Mean Corp Hgb Conc 33.8 g/dL (32-36); Mean Corpuscular Volume 93.7 fL (81-99); Mean Platelet Vol. 9.6 fl (6.2-12.0); Platelet Count 208 K/mm3 (150-450); RBC Distribution Width CV 13.0 % (11.6-14.6); RBC Distribution Width SD 45.0 fl (35.1-43.9); Red Blood Count 3.47 M/mm3 (4.2-5.4); White Blood Count 14.3 K/mm3 (4.4-11.0)
[2025-06-30 07:32] LABS: Anion Gap 10 (5-15); BUN 17 mg/dL (4-19); BUN/Creat Ratio 20.0 RATIO (10-20); Calcium,Total 9.1 mg/dL (7.6-11.0); Carbon Dioxide 24.4 mmol/L (21.0-32.0); Chloride 106 mmol/L (98-108); Estimated Creatinine Clearance 87.98 ml/min (50-250); Glucose 140 mg/dL (70-99); Potassium 4.2 mmol/L (3.3-5.1)
[2025-06-30 07:35] VITALS: O2SAT 99
[2025-06-30 08:03] VITALS: BMI 37.7
[2025-06-30] MEDS: Senna/Docusate Sodium 1 Tablet 2 TABLET PO (09:05)
[2025-06-30] MEDS: Potassium Chloride Oral Tablet 20 MEQ PO (09:06)
[2025-06-30] MEDS: Ensure Surgery 237 ML LIQUID PO ×2 (09:07→12:12)
--- NOTE | 2025-06-30 09:56 | CASEMGMT ---
PEREZ Met with patient to complete PEREZ form. PEREZ form and its content were verbally explained and patient's questions were answered to the best of my ability.? Patient voiced understanding and signed PEREZ form.? Patient provided a copy of signed PEREZ form and original placed in patient's chart.? Patient had no further questions. Roxy Valencia, Discharge Planning Asst
[2025-06-30 11:00] VITALS: BP 134/59; PULSE 56; RESP 16; TEMP 36.4; O2SAT 98
--- NOTE | 2025-06-30 11:18 | PN.ORTHO_ITS ---
Subjective Subjective Patient is sitting comfortably in bedside chair upon my examination. Patient states that overnight she was made aware that her oxygen dropped to 88 and that is why she had to put on some oxygen last night because she forgot her CPAP. Patient states that she does typically wear her CPAP while she is at home. Patient states that her pain is adequately controlled and she is feeling really good at this time. Patient states that she does feel comfortable with going home and will have help at home. Patient denies any new nausea vomiting dizziness. Patient denies any new numbness or tingling. Patient denies any shortness of breath, chest pain, calf pain. Patient denies any adverse events overnight. Objective Data Objective Data Vital Signs: Vital Signs Temp Pulse Resp BP Pulse Ox O2 Del Method O2 Flow Rate 97.6 F L 56 L 16 134/59 H 98 Room Air 2 06/30/25 11:00 06/30/25 11:00 06/30/25 11:00 06/30/25 11:00 06/30/25 11:00 06/30/25 11:00 06/30/25 05:03 Oxygen Flow Rate (L/min) 2 Oxygen Delivery Method Room Air Weight: 122.7 kg Body Mass Index (BMI) 37.7 Intake & Output: Intake and Output for Last 24 Hours 06/28/25 06/29/25 06/30/25 23:59 23:59 23:59 Intake Total 2951.17 / 2951.17 727.08 / 727.08 Output Total 300 / 300 Balance 2651.17 / 2651.17 727.08 / 727.08 Lab / Micro Data 06/30/25 06:25 06/30/25 06:25 Labs: Laboratory Results - last 24 hr 06/29/25 11:23: POC Glucose 85 06/30/25 06:25: WBC 14.3 H, RBC 3.47 L, Hgb 11.0 L, Hct 32.5 L, MCV 93.7, MCH 31.7, MCHC 33.8, RDW Std Deviation 45.0 H, RDW Coeff of Nell 13.0, Plt Count 208, MPV 9.6, Sodium 140, Potassium 4.2, Chloride 106, Carbon Dioxide 24.4, Anion Gap 10, BUN 17, Creatinine 0.86, Estim Creat Clear Calc 87.98, Est GFR (MDRD) Non-Af 72, BUN/Creatinine Ratio 20.0, Glucose 140 H, Calcium 9.1 Micro: Microbiology 06/04/25 10:36 Swab (Method) Nasal Screen MRSA/MSSA - Final Radiography Diagnostic Testing: Radiology Impression Knee X-Ray 06/29/25 15:16 IMPRESSION: The patient's postoperative right total knee arthroplasty, with overlying skin staple seen. Satisfactory alignment is noted. No complication is seen. No fracture site is evident. Reading Location: [address] Physical Exam Narrative MORENO hose in place bilaterally SCDs in place bilaterally Dressing is clean, dry, intact. Dorsiflexion and plantarflexion are performed actively without pain or restriction Sensation intact light touch. Neurovascularly intact overall. Negative Homans bilaterally. Const alert, oriented x3 and no apparent distress Assessment & Plan Assessment/Plan (1) Status post total right knee replacement: PLAN: Status post right total knee arthroplasty day 1. 1. DVT prophylaxis: Patient will be using her regular dose of Xarelto postoperatively. We will avoid any anti-inflammatories in this patient as she is on Xarelto. Patient was educated to wear MORENO hose for 2 weeks postoperatively. 2. Pain medications: Patient was instructed to take Tylenol 1000 mg every 8 hours, oxycodone as needed for postoperative pain control. We are avoiding anti-inflammatories in this patient and she is on Xarelto regularly. 3. Constipation: Patient was instructed to take senna as instructed until her first bowel movement to decrease risk of impaction. Patient was instructed if they have not had a bowel movement in 3 days to call our office for reevaluation 4: Physical therapy: Patient is weightbearing as tolerated with walker and physical therapy. Patient does have outpatient physical therapy established. Patient was working with physical therapy reports working this year. Patient and physical therapy both reported that she did wonderful. 5. H&H: 11.0/32.5 patient's vital signs are stable patient is afebrile at this time. Do not need to begin anemia protocol at this time. 6. Reactive leukocytosis: White blood cell count is currently 14.3. Patient did receive Decadron intraoperatively. Vital signs are stable and afebrile at this time. 7. Dressings: Patient was educated to remove dressings on postoperative day 5. Patient was educated she can leave open to air following removal of the dressings. Patient was educated no soaking or submerging for 6 weeks postoperatively. 8. Patient will follow-up for postoperative instructions. 9. Medicine is involved for safe discharge. 10. Patient oxygen did drop overnight however patient typically wears a CPAP that she forgot to bring. Patient was encouraged to continue wearing her CPAP as normal. Patient voiced understanding. 11. Disposition: Patient is okay for discharge as long as pain maintains adequately controlled, patient has worked with in bed well with physical therapy, patient is cleared from medicine doctors instructions. Patient does have outpatient physical therapy scheduled. Patient will continue to be weightbearing as tolerated with her walker. Patient does have a 2-week follow- up visit scheduled with our office. Patient states that she does have help at home and does feel comfortable with going home at this time. Patient's medications will be sent to patient's pharmacy of choice. Patient was encouraged to call with any questions, concerns, or problems.
--- NOTE | 2025-06-30 11:29 | DCINST_ITS ---
Discharge Instructions DC O2, CPAP, BIPAP needs Home O2 Discharge instructions: No Dressing / Incision Discharge Activity: May Not Drive (No driving for 6 weeks postoperatively.) Weight Bearing Status: Weight bearing as tolerated (With walker.) Keep extremity elevated above heart level: Right Leg (Ice and elevate as needed.) Dressing / Incision Call your doctor if your incision/area has: Continuous Slow Oozing, Sudden Increased Bleeding, Increased Pain/ Swelling, Increased Redness, Foul Smelling Discharge and Swelling at the incision site Call your doctor if you observe: Fever of 101 or Higher, Coldness, Increased Pain, Numbness or Tingling, Change in Color, Inability to urinate, Inability to have a bowel movement, Using more than 1 pad per hour, Shortness of breath, Dizziness, Fainting spells, Swelling in the ankles, Chest pain, Increased palpitations (irregular heartbeat), Calf discomfort and Uncontrolled pain Remove Dressing in: 5 days (Remove dressing on day 5 postop. As long as incision is clean, dry, intact may leave open to air.) Cleanse incision/area with: Soap & Water (Gentle soap and water in the shower.) Additional Dressing/Incision Instructions:: No soaking or submerging for 6 weeks postoperatively. No lotions, salves, oils for 6 weeks postoperatively. OAR[facility] report was reviewed today. Follow Up Care Test Results: Test results from this visit will be discussed in further detail at your follow- up appointment, if applicable. Discharge Plan Admission Admit Date/Time: 06/29/25 07:17 Attending Provider: Herbert Tee Primary Care Provider: Shorty Lawson Consulting Providers: Tina Harrell Discharge Orders/Prescriptions Prescriptions: New acetaminophen 500 mg Tablet 1,000 mg PO Q8 Qty: 0 0RF famotidine 20 mg Tablet 20 mg PO DAILY 30 Days Qty: 30 0RF oxycodone 5 mg Tablet 5 - 10 mg PO Q4H PRN PRN (Reason: As needed for postoperative pain) 7 Days Qty: 42 0RF sennosides-docusate sodium [Stimulant Laxative Plus] 8.6-50 mg Tablet 2 tab PO BID Qty: 0 0RF Rx Instructions: Take until first bowel movement and then can take as needed. Continued cholecalciferol (vitamin D3) 2,000 unit capsule 2,000 unit PO DAILY potassium chloride 20 mEq tablet extended release 20 meq PO DAILY losartan 100 MG tablet 100 mg PO DAILY rivaroxaban 20 MG tablet 20 mg PO DAILY Patient Comments: atorvastatin 10 mg tablet 20 mg PO QHS levothyroxine [Synthroid] 137 mcg tablet 137 mcg PO DAILY Rx Instructions: TAKE 1.5 TABS ON SUNDAY hydrochlorothiazide 25 mg tablet 25 mg PO DAILY sertraline 50 mg tablet 50 mg PO DAILY Other Ambulatory Orders: 12 Lead EKG (Routine) Location: None Selected Ordered By: Dr. Herbert Tee Referrals / Follow Up: Shorty Lawson MD [Primary Care Provider, Medical] Disposition Disposition (needs filled in before D/C Order can be placed): Home, Self Care
--- NOTE | 2025-06-30 11:31 | PN_ITS ---
Subjective Subjective Patient seen and examined with her nurse by bedside. She had no active complaints. Her pain was well-controlled. Review of systems otherwise negative. She is mildly bradycardic with heart rate of 56 this morning. She is otherwise hemodynamically stable. Objective Data Objective Data Vital Signs: Vital Signs Temp Pulse Resp BP Pulse Ox O2 Del Method O2 Flow Rate 97.6 F L 56 L 16 134/59 H 98 Room Air 2 06/30/25 11:00 06/30/25 11:00 06/30/25 11:00 06/30/25 11:00 06/30/25 11:00 06/30/25 11:00 06/30/25 05:03 Oxygen Flow Rate (L/min) 2 Oxygen Delivery Method Room Air Weight: 270 lb 8.115 oz Body Mass Index (BMI) 37.7 Intake & Output: Intake and Output for Last 24 Hours 06/28/25 06/29/25 06/30/25 23:59 23:59 23:59 Intake Total 2951.17 / 2951.17 727.08 / 727.08 Output Total 300 / 300 Balance 2651.17 / 2651.17 727.08 / 727.08 Lab / Micro Data 06/30/25 06:25 06/30/25 06:25 Labs: Laboratory Results - last 24 hr 06/29/25 11:23: POC Glucose 85 06/30/25 06:25: WBC 14.3 H, RBC 3.47 L, Hgb 11.0 L, Hct 32.5 L, MCV 93.7, MCH 31.7, MCHC 33.8, RDW Std Deviation 45.0 H, RDW Coeff of Nell 13.0, Plt Count 208, MPV 9.6, Sodium 140, Potassium 4.2, Chloride 106, Carbon Dioxide 24.4, Anion Gap 10, BUN 17, Creatinine 0.86, Estim Creat Clear Calc 87.98, Est GFR (MDRD) Non-Af 72, BUN/Creatinine Ratio 20.0, Glucose 140 H, Calcium 9.1 Micro: Microbiology 06/04/25 10:36 Swab (Method) Nasal Screen MRSA/MSSA - Final Radiography Diagnostic Testing: Radiology Impression Knee X-Ray 06/29/25 15:16 IMPRESSION: The patient's postoperative right total knee arthroplasty, with overlying skin staple seen. Satisfactory alignment is noted. No complication is seen. No fracture site is evident. Reading Location: [address] Physical Exam Const alert, oriented x3 and no apparent distress General Appearance: cooperative HEENT normocephalic, head/scalp atraumatic, moist oral mucous membranes and oropharynx normal Eyes EOMs intact bilaterally Neck supple and no JVD Lymph Lymphatic: no lymphedema noted Resp normal respiratory effort, normal air movement and clear to auscultation bilaterally Cardio regular rate, regular rhythm, S1 normal heart sound, S2 normal heart sound and no murmurs GI normal to inspection, nondistended, normoactive bowel sounds, soft to palpation and non-tender Extremity Extremity Narrative: right knee wrapped in dressing. Skin Skin Narrative: as under extremities Neuro no focal motor deficits Motor Exam: general weakness Psych thought process normal and cooperative Appearance: appropriate Assessment & Plan Assessment/Plan (1) Status post total right knee replacement: PLAN: Plan #Severe right knee osteoarthritis s/p right knee minimally invasive robotic assisted total arthroplasty * Management as per primary team orthopedic surgery. PT OT on board. Fall precautions. * Incentive spirometry. * #Hypertension: On hydrochlorothiazide and losartan. IV hydralazine as needed #Hyperlipidemia: On statin #Paroxysmal A-fib: S/p radiofrequency ablation. On Xarelto and to resume this when okay with orthopedic surgery. Currently not on any rate or rhythm modulating agent #History of CAD: On statin and losartan. #History of CVA: On statin. To resume Xarelto as stated above when okay with surgery. #History of Graves' disease: Currently on Synthroid. #Anxiety and depression: On sertraline #Class II obesity: BMI is 37.7. Complicates acute care, expected recovery and prognosis. DVT prophylaxis: xarelto resumed as per primary service orthopedics Charges/Coding Visit Charges Inpatient E&M: 62109 Subs Hosp L2
[2025-06-30 12:03] VITALS: BMI 37.7
--- NOTE | 2025-06-30 12:22 | CASEMGMT ---
GHAZAL CM into pt room, pt lying in bed in no distress. Pt states her son is staying with her for a week while she recovers. Pt has her walker in the room and has therapy set up at [facility] to start Sunday. Pt denies any homegoing needs at this time.
[2025-06-30 15:48] VITALS: BP 147/63; PULSE 57; RESP 18; TEMP 36.5; O2SAT 99
== END 2025-06-30 15:31 | disposition home or self-care (01) ==
LOC: MS3 06-30 10:44 → SDC 06-30 11:16 → AC 06-30 11:16 → SDC 06-30 11:16 → MS3 06-30 11:17
PROVIDERS: Admitting Provider Specialist; PCP Family Medicine; Referring Provider Specialist; Visit Provider Specialist
PROC: 0SRC0JZ Replacement of Right Knee Joint with Synthetic Substitute, Open Approach (ICD-10-PCS; CPT 27447; principal; 2025-06-29 12:00)
DX: M17.11 Unilateral primary osteoarthritis, right knee (principal); I48.0 Paroxysmal atrial fibrillation; I48.92 Unspecified atrial flutter; E78.00 Pure hypercholesterolemia, unspecified; Z79.899 Other long term (current) drug therapy; H35.30 Unspecified macular degeneration; G47.33 Obstructive sleep apnea (adult) (pediatric); E05.00 Thyrotoxicosis with diffuse goiter without thyrotoxic crisis or storm; Z79.890 Hormone replacement therapy; I10 Essential (primary) hypertension; I25.10 Atherosclerotic heart disease of native coronary artery without angina pectoris; E66.812 Obesity, class 2; Z68.37 Body mass index [BMI] 37.0-37.9, adult; Z86.718 Personal history of other venous thrombosis and embolism; Z79.01 Long term (current) use of anticoagulants; F41.9 Anxiety disorder, unspecified; F32.A Depression, unspecified
CPT/HCPCS: 27447; S2900; 01402; 36415; 73560; 80048; 82040; 82962; 83735; 84443; 85025; 85027; 87077; 87081; 93005; 94668; 94762; 96361; 96365; 96366; 97162; 97165; 99221; C1776; G0378; J3475